=== PATIENT | female | born 1980 ===

== ENCOUNTER 2016-12-23 11:10 | Day surgery (SDC) | payer BC, OTHER ==
[2016-12-12 10:05] VITALS: BMI 33.3
[2016-12-23] MEDS ORDERED: Propofol 10 mg/ml Inj (20 ML) ONE (16:21)
[2016-12-23] MEDS ORDERED: Midazolam 2 MG/2 ML VIAL ONE (16:21)
[2016-12-23] MEDS ORDERED: Methylene Blue 10 mg/ml (1ml) Inj ONE (16:27)
[2016-12-23] MEDS ORDERED: cefOXitin IV 2 gm in Dextrose 50 ML IVPB ONE (16:27)
[2016-12-23] MEDS ORDERED: Lactated Ringer's 1,000 ML IV ONE ×2 (16:41→19:30)
[2016-12-23] MEDS ORDERED: Succinylcholine Chloride 20 mg/ml Syr (5 ml) IV ONE (17:17)
[2016-12-23] MEDS ORDERED: Rocuronium 10 mg/ml (5 ml) ONE (17:17)
[2016-12-23] MEDS ORDERED: Neostigmine Methylsulfate 3mg/3ml Syringe IV ONE (18:30)
--- NOTE | 2016-12-23 18:57 | PCM.SURG1 ---
Surgeon's Initial Post Op Note - Surgeon's Notes Surgeon: Dr. Muñoz Cephalometric Technician: Dr. Ren Type of Anesthesia: General LMA Anesthesia Administered By: Dr. Galindo Pre-Operative Diagnosis: 36yo with menorrhagia, chronic pelvic pain Left Dermoid cyst 10 cm and Simple cyst on Right. Operative Findings: av uterus with dermoid cyst 10 cm on the left side, Right side simple cyst 3 cm , multiple adhesion, endometriosis , Post-Operative Diagnosis: Same as above Operation Performed: Fractional D and C, Laparoscopy Left Ovarian cystectomy and Right ovarian drilling, Lysis of adhesion, Biopsy of endometrial implant Specimen/Specimens Removed: EMC, ECC, Biopsy of endometrial implant Estimated Blood Loss: EBL {In ML}: 50 Blood Products Given: N/A Drains Used: No Drains Post-Op Condition: Good Date of Surgery/Procedure: 12/23/16 Time of Surgery/Procedure: 18:59
[2016-12-23] MEDS: HYDROmorphone 0.5 mg/0.5 ml ISec IVP PRN ×2 (19:10→19:25)
[2016-12-23 20:05] VITALS: O2SAT 100
[2016-12-23 21:34] VITALS: BP 121/63; PULSE 84; RESP 20; TEMP 98
--- NOTE | 2017-01-21 10:53 | OP ---
PROCEDURE DATE: 12/23/2016 PREOPERATIVE DIAGNOSES: A 36-year-old female with history of menorrhagia, chronic pelvic pain, left dermoid cyst approximately 10 cm, and a simple cyst on the right side. POSTOPERATIVE DIAGNOSES: A 36-year-old female with history of menorrhagia, chronic pelvic pain, left dermoid cyst approximately 10 cm, and a simple cyst on the right side. PROCEDURES: Fractional dilation and curettage, a laparoscopic left ovarian cystectomy and right ovar jaun drilling, lysis of adhesions, and also biopsy of the endometrial implant. SURGEON: Dr. Muñoz. MANAGER SKILLED: Dr. Ren. TYPE OF ANESTHESIA: General LMA. FINDINGS: An anteverted uterus approximately 8 weeks' gestation, noted to have a complex ovarian cys t on the left side which was approximately 10 cm and the right was 3 cm. She also had multiple adhes ions and evidence of endometriosis in which biopsy was then performed. COMPLICATIONS: None. ESTIMATED BLOOD LOSS: 50 mL. IV FLUID: 1000 mL. URINE OUTPUT: 200 mL. SPECIMEN: EMC, ECC as well as capsule of the left cyst. The patient was informed of the risk factors, benefits, and alternatives of procedure. Risk factors included infection, bleeding, damage to surrounding organs and tissue, complication from anesthesia a nd possible . All risk factors were explained, but not limited to. The indication of this particular procedure was a diagnosis of a complex left ovarian mass that was m easuring approximately 10 cm. She had been experiencing chronic pelvic pain for approximately 6 elana hs as well as irregular menstrual period. DESCRIPTION OF PROCEDURE: The patient was given general anesthesia. Once this was found to be adequ ate, she was prepped and draped in normal sterile fashion, placed in dorsal lithotomy position. On t hat particular exam, a bimanual examination revealed the findings of a palpable mass on the left side . In that particular instance, a weighted speculum was placed into the vagina. The anterior lip of the cervix was grasped with a single-tooth tenaculum. The uterus was gently sounded to approximately 10 cm. Upon complete uterine dilation, a fractional D and C was then performed. EMC and ECC were s ubmitted to pathology. A HUMI was then advanced in order to manipulate the uterus. Attention was th en turned to the umbilical fold in which a 5 mm skin incision was made in the umbilical fold. The op tic trocar under direct visualization was then introduced; 4 liters of CO2 gas was given. At that pa rticular time, an additional 5 mm trocar was then placed in the right lower quadrant as well as the l eft lower quadrant. A surveillance of the uterine cavity was then performed. It was noted that she had multiple adhesions. Lysis of adhesions was then performed with the Endo-scissors laparoscopicall y. Excellent hemostasis was noted. It was also noted that she had endometriosis. There were multip le endometrial implants in the cul-de-sac. A biopsy was then performed and submitted to pathology. Attention was then turned to the cyst which basically was entered using the electrocautery. Suction was used to drain the fluid. A vertical incision was then performed. The cystic wall was identified and was removed using dissection with countertraction. The ovarian beds were irrigated and they wer e dry. There was slight oozing from the edge of the ovary, which hemostasis was noted with electrica l curetting. The pelvis was then irrigated copiously. It was noted that on the right side she also had an ovarian cyst which looked like a simple cyst. Ovarian drilling was then performed. Excellent hemostasis was noted. So the cystic capsule was then removed and one of the 5 mm ports. Excellent hemostasis was noted. The trocars were removed under direct visualization. The umbilical incision w as closed using 3-0 Monocryl as well as the other 2. Excellent hemostasis. The patient tolerated pr ocedure well. Instruments and lap count were correct x 2. The patient was then taken to the recover y room in stable condition and instructed to follow up in the office in approximately 2 weeks. Matilde Muñoz MD cc: [id number] TT: 01/21/2017 10:52:33 ms
== END 2016-12-23 21:00 | disposition home or self-care (01) ==
LOC: C.SDS 11:10
PROVIDERS: ATTEND Obstetrics & Gynecology
DX: N92.0 Excessive and frequent menstruation with regular cycle (principal); D27.1 Benign neoplasm of left ovary
CPT/HCPCS: 49322; 58120; 58662; 82948; 88304; 88305; 88342; J0694; J1170; J2250; J2704; J2710; J3010; J7120; Q9968